=== PATIENT | female | born 1995 | race Two or more races ===

== ENCOUNTER 2020-04-08 17:43 | Emergency (ER) | payer OTHER ==
[~2020-04-08] VITALS: Ht 170.2 cm; Wt 70.3 kg
== END 2020-04-08 20:23 | disposition home or self-care (01) ==
LOC: ER 17:43
DX: S01.121A Laceration with foreign body of right eyelid and periocular area, initial encounter (principal); W22.8XXA Striking against or struck by other objects, initial encounter; Y93.51 Activity, roller skating (inline) and skateboarding; Y92.89 Other specified places as the place of occurrence of the external cause; Y99.8 Other external cause status